=== PATIENT | male | born 1985 | race Caucasian/White ===

== ENCOUNTER 2017-04-10 01:57 | Emergency (ER) | payer MEDICAID, MEDICARE, OTHER ==
[~2017-04-10] VITALS: Ht 172.7 cm; Wt 67.1 kg
[2017-04-10] MEDS ORDERED: NAPR500T2 PO (06:38)
[2017-04-10] MEDS ORDERED: ROBA500T PO (06:38)
[2017-04-10] MEDS ORDERED: NORCOTAB PO (06:38)
[2017-04-10] MEDS ORDERED: NORCO, ANEXSIA 5/325MG TABLET (HYDROcodone/ACETAMINOPHEN) PO ONE (06:45)
[2017-04-10] MEDS ORDERED: METHOCARBAMOL 500 MG TAB PO ONE (06:45)
[2017-04-10 06:49] VITALS: BP 139/77
== END 2017-04-10 07:02 | disposition home or self-care (01) ==
LOC: M ED 04:40
DX: S39.012A Strain of muscle, fascia and tendon of lower back, initial encounter (principal); X50.9XXA Other and unspecified overexertion or strenuous movements or postures, initial encounter; Y92.89 Other specified places as the place of occurrence of the external cause; Y93.89 Activity, other specified; Y99.9 Unspecified external cause status; M51.36 Other intervertebral disc degeneration, lumbar region

== ENCOUNTER → 2017-05-13 | Outpatient (CLI) | payer OTHER, MEDICAID ==
[~2017-05-13] MED LIST: NAPR500T2 PO; NORCOTAB PO; ROBA500T PO
--- NOTE | 2017-05-13 12:18 | REP ---
REASON: Low back pain. COMPARISON EXAM: None. Vertebral body height and alignment is within normal limits. There is mild loss of disc hydrational signal and disc space height at L2-3. The remainder of the disc spaces are well hydrated with only minimal posterior disc space height loss. The marrow signal is normal throughout. There is no abnormal signal seen in the imaged portion of the spinal cord. At the L1-2 level, there is no abnormality. There is no disc herniation, foraminal narrowing, or central canal stenosis. At the L2-3 level, there a slight broad-based annular bulge. There is no disc herniation, foraminal narrowing, or central canal stenosis. At the L3-4 level, there is a slight broad-based annular bulge seen in conjunction with mild degenerative facet joint changes bilaterally and mild thickening of the ligamentum flava. The anterior surface of the spinal cord is contacted by the discogenic change, but there is no foraminal narrowing or central canal stenosis. There is no disc extrusion. At the L4-5 level, there is a mild broad-based annular bulge which flattens and straightens the anterior thecal sac. Degenerative facet joint changes are present bilaterally with mild thickening of the ligamentum flava, and the factors in concert are causing minimal central canal stenosis. There is no acute disc extrusion or foraminal narrowing. At the L5-S1 level, there is a mild broad-based annular bulge. There is no disc herniation, foraminal narrowing, or central canal stenosis. IMPRESSION: Subtle discogenic changes and other related findings as described above. Signed by George Blackwell DO 05/13/2017 01:42 P
== END ==
LOC: M PLARAD 09:47
PROVIDERS: ATTEND Family Medicine
DX: M51.36 Other intervertebral disc degeneration, lumbar region (principal); M51.37 Other intervertebral disc degeneration, lumbosacral region

== ENCOUNTER 2017-06-19 18:07 | Emergency (ER) | payer OTHER, MEDICAID ==
[~2017-06-19] VITALS: Ht 172.7 cm; Wt 70.9 kg
[~2017-06-19 18:07] MED LIST changes: -NAPR500T2 PO; +NAPR500T3 PO
[2017-06-19 18:08] VITALS: BP 127/72
[2017-06-19] MEDS ORDERED: NAPR500T PO (18:38)
== END 2017-06-19 18:42 | disposition home or self-care (01) ==
LOC: M ED 18:07
DX: J02.9 Acute pharyngitis, unspecified (principal)

== ENCOUNTER → 2018-03-30 | Outpatient (CLI) | payer OTHER, MEDICAID | LOC: M RAD 13:28 | DX: M54.40 Lumbago with sciatica, unspecified side (principal) | CPT/HCPCS: 72080 ==

== ENCOUNTER 2018-05-27 20:11 | Emergency (ER) | payer OTHER, MEDICAID | END 2018-05-28 00:30 | disposition home or self-care (01) | LOC: M ED 05-28 00:30 | DX: J06.9 Acute upper respiratory infection, unspecified (principal); R91.8 Other nonspecific abnormal finding of lung field; M54.9 Dorsalgia, unspecified | CPT/HCPCS: 71046 ==

== ENCOUNTER 2018-06-02 12:44 | Outpatient (RCR) | payer OTHER, MEDICAID | END 2018-06-20 | disposition home or self-care (01) | LOC: M PT 12:44 | DX: Z51.89 Encounter for other specified aftercare (principal); M54.40 Lumbago with sciatica, unspecified side | CPT/HCPCS: 97010 ==

== ENCOUNTER → 2018-10-17 | Outpatient (REF) | payer OTHER, MEDICAID ==
[2018-10-17 17:04] LABS: APPEARANCE, URINE CLEAR (CLEAR); BACTERIA, URINE AUTO NEGATIVE (NEGATIVE); BILIRUBIN, URINE AUTO NEGATIVE (NEGATIVE); BLOOD, URINE BLOOD NEGATIVE (NEGATIVE); COLOR, URINE YELLOW (YELLOW); GLUCOSE, URINE (UA) AUTO NEGATIVE (NEGATIVE); KETONE, URINE AUTO NEGATIVE (NEGATIVE); LEUKOCYTE ESTERASE, URINE AUTO NEGATIVE (NEGATIVE); MUCUS, URINE SMALL (NEGATIVE); NITRITE, URINE AUTO NEGATIVE (NEGATIVE); PROTEIN, URINE AUTO NEGATIVE (NEGATIVE); RBC, URINE AUTO 0 /HPF (0-3); SPECIFIC GRAVITY URINE AUTO 1.027 (1.002-1.035); SQUAMOUS EPITHELIAL CELL UR AU 0 /HPF (0-6); WBC, URINE AUTO 2 /HPF (0-3)
== END ==
LOC: M SFHCLERA 13:43
DX: R10.84 Generalized abdominal pain (principal)
CPT/HCPCS: 81001

== ENCOUNTER 2019-01-09 20:19 | Emergency (ER) | payer OTHER, MEDICAID ==
[~2019-01-09] VITALS: Ht 172.7 cm; Wt 72.7 kg
[~2019-01-09 20:19] MED LIST changes: +NAPR-50 PO; +NAPR-885 PO; -NAPR500T3 PO; +ZITHTAB PO
[2019-01-09 21:25] LABS: INFLUENZA A AMPLIFICATION POSITIVE (NEGATIVE); INFLUENZA B AMPLIFICATION NEGATIVE (NEGATIVE)
[2019-01-09 21:55] VITALS: BP 134/68
[2019-01-09] MEDS ORDERED: OSEL75CA PO (22:23)
[2019-01-09] MEDS ORDERED: OSELTAMIVIR PHOSPHATE 75 MG CAP (TAMIFLU) PO ONE (22:30)
== END 2019-01-09 22:34 | disposition home or self-care (01) ==
LOC: M ED 20:19
DX: J09.X2 Influenza due to identified novel influenza A virus with other respiratory manifestations (principal); R06.9 Unspecified abnormalities of breathing; R50.9 Fever, unspecified; Z20.828 Contact with and (suspected) exposure to other viral communicable diseases

== ENCOUNTER 2019-01-24 19:46 | Emergency (ER) | payer OTHER, MEDICAID ==
[~2019-01-24] VITALS: Ht 172.7 cm; Wt 72.7 kg
[~2019-01-24 19:46] MED LIST changes: +OSEL75CA PO
[2019-01-24] MEDS ORDERED: ALBUTEROL SULFATE 2.5 MG/0.5 ML INH NEB SOLN NEB ONE (20:30)
[2019-01-24] MEDS ORDERED: VENTAER INH (21:36)
[2019-01-24] MEDS ORDERED: ALBUTEROL 90 MCG/ACT 8GM HFA INHALER INH ONE (21:45)
[2019-01-24 21:52] VITALS: BP 136/80
--- NOTE | 2019-01-25 01:51 | REP ---
Clinical: Shortness of breath. Comparison: 05/27/2018. Technique: PA and lateral. Findings: Mediastinum and cardiac silhouette are normal. Lung barton are essentially clear and without focal consolidation, effusion, or pneumothorax. Skeletal structures are intact. Impression: No focal consolidation. Electronically Signed by Anatoly Bales MD 01/25/2019 01:43 A
== END 2019-01-24 21:53 | disposition home or self-care (01) ==
LOC: M ED 19:46
DX: J20.9 Acute bronchitis, unspecified (principal)

== ENCOUNTER 2019-03-29 02:40 | Emergency (ER) | payer OTHER, MEDICAID ==
[~2019-03-29] VITALS: Ht 172.7 cm; Wt 73.1 kg
[~2019-03-29 02:40] MED LIST changes: +HYDR-3715 PO; -NAPR-50 PO; +NAPR-837 PO; -NORCOTAB PO; +VENTAER INH
[2019-03-29] MEDS ORDERED: PSEU30TA88 PO (03:24)
[2019-03-29] MEDS ORDERED: IBUPROFEN 600 MG TAB PO ONE (03:30)
[2019-03-29] MEDS ORDERED: PSEUDOEPHEDRINE 30 MG TAB PO ONE (03:30)
[2019-03-29 03:50] VITALS: BP 109/60
== END 2019-03-29 03:51 | disposition home or self-care (01) ==
LOC: M ED 02:40
DX: J06.9 Acute upper respiratory infection, unspecified (principal)

== ENCOUNTER 2019-07-25 09:45 | Emergency (ER) | payer OTHER, MEDICAID ==
[~2019-07-25] VITALS: Ht 172.7 cm; Wt 72.7 kg
[~2019-07-25 09:45] MED LIST changes: +PSEU30TA88 PO
[2019-07-25] MEDS ORDERED: CYCLOBENZAPRINE 10 MG TAB PO ONE (10:30)
[2019-07-25] MEDS ORDERED: KETOROLAC TROMETHAMINE 10 MG TAB PO ONE (10:30)
[2019-07-25] MEDS ORDERED: CYCL5TAB PO (11:03)
[2019-07-25] MEDS ORDERED: KETO10TAB PO (11:03)
[2019-07-25 11:10] VITALS: BP 124/80
== END 2019-07-25 11:12 | disposition home or self-care (01) ==
LOC: M ED 09:45
DX: M62.830 Muscle spasm of back (principal); G89.29 Other chronic pain; M54.9 Dorsalgia, unspecified

== ENCOUNTER 2019-08-04 23:32 | Emergency (ER) | payer OTHER, MEDICAID ==
[~2019-08-04] VITALS: Ht 172.7 cm; Wt 72.7 kg
[~2019-08-04 23:32] MED LIST changes: +CYCL5TAB PO; +KETO10TAB PO
[2019-08-05] MEDS ORDERED: ROBA750T4 PO (00:40)
[2019-08-05] MEDS ORDERED: METHOCARBAMOL 750 MG TAB PO ONE (00:45)
[2019-08-05] MEDS ORDERED: KETOROLAC TROMETHAMINE 10 MG TAB PO ONE (00:45)
[2019-08-05 01:24] VITALS: BP 119/73
== END 2019-08-05 01:25 | disposition home or self-care (01) ==
LOC: M ED 23:32
DX: M54.9 Dorsalgia, unspecified (principal)

== ENCOUNTER 2019-09-13 03:20 | Emergency (ER) | payer OTHER, MEDICAID ==
[~2019-09-13] VITALS: Ht 172.7 cm; Wt 73.6 kg
[~2019-09-13 03:20] MED LIST changes: +ROBA750T4 PO
[2019-09-13 08:07] LABS: BASO # 0.1 10^3/uL (0.0-0.2); BASO % 0.5 % (0.0-1.0); EOS # 0.2 10^3/uL (0.0-0.5); EOS % 1.4 % (0.0-3.0); HEMATOCRIT 39.1 % (42.0-52.0); HEMOGLOBIN 13.5 g/dl (13.5-17.5); LYMPH # 1.4 10^3/uL (1.5-5.0); LYMPH % 10.6 % (24.0-44.0); MEAN CORPUSCULAR HEMOGLOBIN 31.5 pg (27.0-33.0); MEAN CORPUSCULAR HGB CONC 34.5 g/dl (32.0-36.5); MEAN CORPUSCULAR VOLUME 91.1 fl (80.0-96.0); MONO # 1.3 10^3/uL (0.0-0.8); MONO % 9.7 % (0.0-5.0); NEUTROPHILS # 9.9 10^3/uL (1.5-8.5); NEUTROPHILS % 77.2 % (36.0-66.0); PLATELET COUNT, AUTOMATED 252 10^3/uL (150-450); RED BLOOD COUNT 4.29 10^6/uL (4.30-6.10); WHITE BLOOD COUNT 12.9 10^3/uL (4.0-10.0)
[2019-09-13 08:33] LABS: MONO SCRN NEGATIVE (NEGATIVE)
--- NOTE | 2019-09-13 09:14 | REP ---
CHEST, TWO VIEWS: There is no evidence of acute infiltrate. No pleural effusion is seen. The heart is normal in size. The mediastinal silhouette is unremarkable. The visualized osseous structures are intact. IMPRESSION: No acute pulmonary disease. Electronically Signed by James Matthews MD 09/15/2019 10:16 A
[2019-09-13 09:40] LABS: INFLUENZA A AMPLIFICATION NEGATIVE (NEGATIVE); INFLUENZA B AMPLIFICATION NEGATIVE (NEGATIVE)
[2019-09-13 09:48] VITALS: BP 117/68
[2019-09-13] MEDS ORDERED: IBUPROFEN 800 MG TAB PO ONE (10:00)
[2019-09-13] MEDS ORDERED: ACETAMINOPHEN 325 MG TAB PO ONE (10:00)
== END 2019-09-13 09:59 | disposition home or self-care (01) ==
LOC: M ED 03:20
DX: B34.9 Viral infection, unspecified (principal)

== ENCOUNTER 2019-09-19 19:13 | Emergency (ER) | payer OTHER, MEDICAID ==
[~2019-09-19] VITALS: Ht 172.7 cm; Wt 73.6 kg
[2019-09-19 20:09] LABS: BASO # 0.1 10^3/uL (0.0-0.2); BASO % 0.8 % (0.0-1.0); EOS # 0.2 10^3/uL (0.0-0.5); EOS % 1.9 % (0.0-3.0); HEMATOCRIT 41.3 % (42.0-52.0); LYMPH # 1.7 10^3/uL (1.5-5.0); LYMPH % 17.1 % (24.0-44.0); MEAN CORPUSCULAR HGB CONC 33.9 g/dl (32.0-36.5); MEAN CORPUSCULAR VOLUME 91.4 fl (80.0-96.0); MONO % 10.6 % (0.0-5.0); NEUTROPHILS # 6.7 10^3/uL (1.5-8.5); NEUTROPHILS % 69.2 % (36.0-66.0); PLATELET COUNT, AUTOMATED 358 10^3/uL (150-450); RED BLOOD COUNT 4.52 10^6/uL (4.30-6.10); WHITE BLOOD COUNT 9.7 10^3/uL (4.0-10.0)
[2019-09-19] MEDS ORDERED: NS 1,000 ML IV ONE (20:15)
[2019-09-19] MEDS ORDERED: ALBUTEROL SULFATE 2.5 MG/0.5 ML INH NEB SOLN NEB ONE (20:30)
[2019-09-19] MEDS ORDERED: ONDANSETRON 4MG/2ML VIAL (J2405) IV ONE (20:30)
[2019-09-19] MEDS ORDERED: BENZONATATE 100 MG CAP PO ONE (20:30)
[2019-09-19 20:57] LABS: ALBUMIN 3.6 GM/DL (3.2-5.2); ALT/SGPT 17 U/L (12-78); BILIRUBIN,TOTAL 0.5 MG/DL (0.2-1.0); BLOOD UREA NITROGEN 10 MG/DL (7-18); CALCIUM LEVEL 8.8 MG/DL (8.5-10.1); CARBON DIOXIDE LEVEL 30 MEQ/L (21-32); CHLORIDE LEVEL 108 MEQ/L (98-107); CREATININE FOR GFR 1.17 MG/DL (0.70-1.30); GLOMERULAR FILTRATION RATE > 60.0 (>60); GLUCOSE, FASTING 89 MG/DL (70-100); LIPASE 108 U/L (73-393); POTASSIUM SERUM 3.9 MEQ/L (3.5-5.1); SODIUM LEVEL 140 MEQ/L (136-145); TOTAL PROTEIN 8.1 GM/DL (6.4-8.2)
[2019-09-19 21:58] LABS: INFLUENZA A AMPLIFICATION NEGATIVE (NEGATIVE); INFLUENZA B AMPLIFICATION NEGATIVE (NEGATIVE)
[2019-09-19] MEDS ORDERED: TESS100C PO (22:37)
[2019-09-19] MEDS ORDERED: ONDA4TAB6 PO (22:37)
[2019-09-19] MEDS ORDERED: PROAAER10 INH (22:37)
[2019-09-19 22:49] VITALS: BP 142/72
--- NOTE | 2019-09-20 07:48 | REP ---
Clinical: Cough and shortness of breath . Comparison: 09/13/2019 . Technique: PA and lateral. Findings: The mediastinum and cardiac silhouette are normal. The lung barton are clear and without acute consolidation, effusion, or pneumothorax. The skeletal structures are intact and normal. Impression: 1. No acute cardiopulmonary process. Electronically Signed by Anatoly Bales MD 09/20/2019 07:40 A
== END 2019-09-19 22:51 | disposition home or self-care (01) ==
LOC: M ED 19:13
DX: R11.2 Nausea with vomiting, unspecified (principal); R19.7 Diarrhea, unspecified; R05 Cough
CPT/HCPCS: 71046; 80053; 81001; 83690; 85025; 87502; 94640; 96374; 99284; J2405

== ENCOUNTER 2019-11-10 06:32 | Emergency (ER) | payer OTHER, MEDICAID ==
[~2019-11-10] VITALS: Ht 172.7 cm; Wt 72.7 kg
[~2019-11-10 06:32] MED LIST changes: +ONDA4TAB6 PO; +PROAAER10 INH; +TESS100C PO
[2019-11-10] MEDS ORDERED: TETANUS IMMUNE GLOBULIN (HUMAN) 250 UNITS/ML SYRINGE (J1670)(90389) IM ONE (08:00)
[2019-11-10] MEDS ORDERED: ADACEL/BOOSTRIX VACCINE (DIPHTH/PERTUSS/ACELL/TETANUS)0.5ML SYR (90715) IM ONE (08:15)
[2019-11-10 08:37] VITALS: BP 116/73
== END 2019-11-10 08:55 | disposition home or self-care (01) ==
LOC: M ED 06:32
DX: S01.511A Laceration without foreign body of lip, initial encounter (principal); V47.0XXA Car driver injured in collision with fixed or stationary object in nontraffic accident, initial encounter; Y92.9 Unspecified place or not applicable; Y93.9 Activity, unspecified; Y99.9 Unspecified external cause status; G89.29 Other chronic pain; M54.2 Cervicalgia

== ENCOUNTER 2020-01-12 00:38 | Emergency (ER) | payer MEDICAID, OTHER ==
[~2020-01-12] VITALS: Ht 172.7 cm; Wt 73.5 kg
[2020-01-12] MEDS ORDERED: NAPR-837 PO (04:47)
[2020-01-12 05:00] VITALS: BP 128/68
[2020-01-12] MEDS ORDERED: NAPROXEN 250 MG TAB PO ONE (05:00)
== END 2020-01-12 05:01 | disposition home or self-care (01) ==
LOC: M ED 00:38
DX: M54.5 Low back pain (principal)

== ENCOUNTER → 2021-03-18 | Outpatient (CLI) | payer SELFPAY | LOC: M LABSMTC 11:26 | PROVIDERS: ATTEND Pediatrics | DX: Z11.52 Encounter for screening for COVID-19 (principal) ==

== ENCOUNTER 2021-06-29 11:58 | Emergency (ER) | payer MEDICAID, OTHER ==
[~2021-06-29] VITALS: Ht 172.7 cm; Wt 81.0 kg
[2021-06-29] MEDS ORDERED: ONDANSETRON 4MG/2ML VIAL IV ONE (15:10)
[2021-06-29] MEDS ORDERED: NS 1,000 ML IV ONE (15:10)
[2021-06-29] MEDS ORDERED: KETOROLAC 30 MG/ML 1ML VIAL IV ONE (15:10)
[2021-06-29] MEDS ORDERED: ISOVUE-370 76% 100ML VIAL As Ordered ONE (15:48)
[2021-06-29 15:50] LABS: BASO % 0.6 % (0.0-1.0); EOS # 0.2 10^3/uL (0.0-0.5); EOS % 3.4 % (0.0-3.0); HEMATOCRIT 40.8 % (42.0-52.0); LYMPH # 1.6 10^3/uL (1.5-5.0); LYMPH % 22.2 % (24.0-44.0); MEAN CORPUSCULAR HEMOGLOBIN 30.9 pg (27.0-33.0); MEAN CORPUSCULAR HGB CONC 34.3 g/dl (32.0-36.5); MEAN CORPUSCULAR VOLUME 90.1 fl (80.0-96.0); MONO # 0.7 10^3/uL (0.0-0.8); MONO % 9.1 % (2.0-8.0); NEUTROPHILS # 4.6 10^3/uL (1.5-8.5); NEUTROPHILS % 64.3 % (36.0-66.0); PLATELET COUNT, AUTOMATED 275 10^3/uL (150-450); RED BLOOD COUNT 4.53 10^6/uL (4.30-6.10); WHITE BLOOD COUNT 7.2 10^3/uL (4.0-10.0)
--- NOTE | 2021-06-29 16:14 | REP ---
INDICATION: rlq pain. COMPARISON: None. TECHNIQUE: Abdomen/pelvis CT with IV contrast, without bowel contrast. FINDINGS: The visualized lung barton are unremarkable. The hepatic parenchyma, gallbladder, pancreas and spleen are unremarkable. The adrenals and kidneys are unremarkable. The abdominal aorta is unremarkable. There is no periaortic adenopathy or mass. There is no bowel distention or obstruction. Are no inflammatory changes in the mesentery. The appendix and terminal ileum are unremarkable. There is wall thickening of the descending colon and distal transverse colon, nonspecific but possibly infectious versus inflammatory colitis in the appropriate clinical setting. Pelvis: There is no ascites or adenopathy. The pelvic bowel loops are unremarkable. Bladder is incompletely distended but otherwise unremarkable. Skeletal structures are unremarkable. IMPRESSION: There is wall thickening of the distal transverse colon and descending colon, nonspecific but could represent infectious versus inflammatory colitis in the appropriate clinical setting. There is no ascites, adenopathy, mass or pneumoperitoneum. The appendix and terminal ileum are unremarkable. <Electronically signed by James Casarez > 06/29/21 [id number]
[2021-06-29 16:25] LABS: ALBUMIN 3.7 GM/DL (3.2-5.2); BILIRUBIN,DIRECT 0.2 MG/DL (0.0-0.2); BILIRUBIN,TOTAL 0.7 MG/DL (0.2-1.0); TOTAL PROTEIN 7.1 GM/DL (6.4-8.2)
[2021-06-29] MEDS ORDERED: PROM25TA12 PO (16:51)
[2021-06-29] MEDS ORDERED: CIPR-249 PO (16:51)
[2021-06-29] MEDS ORDERED: FLAG500T PO (16:51)
[2021-06-29 17:19] VITALS: BP 128/84
== END 2021-06-29 17:34 | disposition home or self-care (01) ==
LOC: M ED 11:58
DX: K52.9 Noninfective gastroenteritis and colitis, unspecified (principal); J45.909 Unspecified asthma, uncomplicated; M54.9 Dorsalgia, unspecified; F17.200 Nicotine dependence, unspecified, uncomplicated; Z79.899 Other long term (current) drug therapy
CPT/HCPCS: 74177; 80047; 80076; 81001; 83605; 83690; 85025; 96361; 96374; 96375; 99284; J1885; J2405; Q9967

== ENCOUNTER → 2021-10-30 | Outpatient (REF) ==
[~2021-10-30] MED LIST changes: +CIPR-249 PO; +FLAG500T PO; +PROM25TA12 PO
== END ==
LOC: M LABSMTC 09:09
PROVIDERS: ATTEND Pediatrics
DX: Z20.828 Contact with and (suspected) exposure to other viral communicable diseases (principal)

== ENCOUNTER → 2024-11-28 | Outpatient (CLI) | payer OTHER ==
[~2024-11-28] MED LIST changes: -CYCL5TAB PO; +CYCL5TAB4 PO; +ONDA-282 PO; -ONDA4TAB6 PO
[2024-11-28 11:26] LABS: ALBUMIN 3.8 G/DL (3.2-5.2); ALKALINE PHOSPHATASE 84 U/L (40-129); ALT/SGPT 17 U/L (7.0-40); AST/SGOT 13 U/L (<34); BILIRUBIN,TOTAL 0.7 MG/DL (0.3-1.2); BLOOD UREA NITROGEN 15 MG/DL (9-23); CALCIUM LEVEL 9.5 MG/DL (8.5-10.1); CARBON DIOXIDE LEVEL 29 MMOL/L (20-31); CHLORIDE LEVEL 108 MMOL/L (98-107); CHOLESTEROL LEVEL 170 MG/DL (<200); CHOLESTEROL RISK RATIO 3.26 (<5); GLOMERULAR FILTRATION RATE > 60.0 (>60); GLUCOSE, FASTING 99 MG/DL (60-100); HDL CHOLESTEROL 52.1 MG/DL (>40); LDL CHOLESTEROL 104.5 MG/DL (<100); NON-HDL-C 117.9 MG/DL; POTASSIUM SERUM 4.4 MMOL/L (3.5-5.1); SODIUM LEVEL 138 MMOL/L (136-145); TOTAL PROTEIN 7.1 G/DL (5.7-8.2); TRIGLYCERIDES LEVEL 67 MG/DL (<150)
[2024-11-28 11:28] LABS: BASO # 0.1 10^3/uL (0.0-0.2); EOS # 0.1 10^3/uL (0.0-0.5); EOS % 1.7 % (0.0-3.0); HEMATOCRIT 43.2 % (42.0-52.0); HEMOGLOBIN 14.4 g/dl (13.5-17.5); LYMPH # 1.5 10^3/uL (1.5-5.0); LYMPH % 18.4 % (24.0-44.0); MEAN CORPUSCULAR HEMOGLOBIN 30.6 pg (27.0-33.0); MEAN CORPUSCULAR HGB CONC 33.3 g/dl (32.0-36.5); MEAN CORPUSCULAR VOLUME 91.7 fl (80.0-96.0); MONO # 0.6 10^3/uL (0.0-0.8); MONO % 7.6 % (2.0-8.0); NEUTROPHILS # 5.8 10^3/uL (1.5-8.5); NEUTROPHILS % 70.7 % (36.0-66.0); PLATELET COUNT, AUTOMATED 318 10^3/uL (150-450); RED BLOOD COUNT 4.71 10^6/uL (4.30-6.10); WHITE BLOOD COUNT 8.3 10^3/uL (4.0-10.0)
[2024-11-28 11:53] LABS: HIV 1&2 SCREEN NEGATIVE (NEGATIVE)
== END ==
LOC: M LAB 10:15
PROVIDERS: ATTEND Nurse Practitioner Family
DX: R53.83 Other fatigue (principal); E66.3 Overweight; Z11.9 Encounter for screening for infectious and parasitic diseases, unspecified

== ENCOUNTER → 2025-01-07 | Outpatient (CLI) | payer OTHER, SELFPAY | LOC: M EKG 11:14 | PROVIDERS: ATTEND Nurse Practitioner Family | DX: R42 Dizziness and giddiness (principal); R00.1 Bradycardia, unspecified ==

== ENCOUNTER → 2025-02-16 | Outpatient (CLI) | payer SELFPAY | LOC: M EKG 10:40 | PROVIDERS: ATTEND Nurse Practitioner Family | DX: R42 Dizziness and giddiness (principal) ==